=== PATIENT | female | born 2000 | race Caucasian/White ===

== ENCOUNTER 2018-01-08 22:31 | Emergency (ER) | payer BC ==
[~2018-01-08] VITALS: Ht 182.9 cm; Wt 91.0 kg
[2018-01-08 22:46] VITALS: TEMP 36.8; Ht 182.9 cm; Wt 91.0 kg
[2018-01-08 23:50] VITALS: BP 132/67; PULSE 71; O2SAT 100
--- NOTE | 2018-01-09 06:11 | EMERGENCY ROOM VISIT NOTE ---
ED Visit Note First contact with patient: 22:38 CHIEF COMPLAINT: knee pain HISTORY OF PRESENT ILLNESS: This 18-year-old patient presents to the emergency department after sustaining an injury to the left knee when she is walking up the steps and twisted and felt her patella sublux out. Patient was able to straighten out the leg and states she has had this problem before. There was no direct fall or trauma.. The patient denies any other injuries besides their knee. The patient denies swelling or bruising. There is pain throughout the kneecap. They rate the pain as throbbing and 5/10. The patient states they are barely able to walk on it. No numbness or tingling. No previous injuries to this knee. No ankle, foot or hip pain. REVIEW OF SYSTEMS: A 6 system review of systems was completed with positives and pertinent negatives listed in the HPI. ALLERGIES: None MEDICATIONS: None PMH: Orthopedic problem SOCIAL HISTORY: No drug use PHYSICAL EXAM: Vital Signs: Reviewed Nurse's notes, vital signs stable. GENERAL : Pleasant female, no acute distress, but appears in pain, well-developed, well- nourished. MENTAL STATUS: Alert, oriented to person place and time, and cooperative. MUSCULOSKELETAL: The left knee is not swollen. There is no ecchymosis. There is no joint effusion present. The patient is tender diffusely. There is no joint line tenderness. The patella is not subluxate. Range of motion is intact. Strength of the quads and hamstrings is 5/5. Kristan' s is negative. Calvin's and Anterior Drawer tests are negative. There is no laxity with varus and valgus stressing. The foot and toes are warm and well- perfused. Dorsalis pedis pulse 2+. Sensation to pain and light touch is intact. Capillary refill less than 2 seconds. EMERGENCY DEPARTMENT COURSE: I examined the patient. X-rays of the left knee were reviewed by myself and my attending and reveal no fracture. The patient was placed in a knee immobilizer under my direction and the position was satisfactory. The patient was instructed on the use of crutches. Family was advised to follow-up with orthopedics in a few days or here in the ER sooner for severe pain, numbness, tingling, worsening signs or symptoms or as needed. Patient had no fracture. She is well-appearing. She has a history of her patella subluxing. The patient was discharged home in good condition. Differential diagnosis includes sprain, strain, fracture, dislocation and other etiologies were considered. DIAGNOSIS: Left patella subluxed DISCHARGE INSTRUCTIONS: As below Vital Signs Date Time Temp Pulse Resp B/P (MAP) Pulse Ox O2 Delivery O2 Flow Rate FiO2 01/08/18 23:50 71 20 132/67 100 01/08/18 22:46 36.8 71 20 132/67 100 Room Air Departure Information Impression Primary Impression: Subluxation of left patella Dispostion Home / Self-Care Condition GOOD Referrals Miguelito Gambino D.O. Forms HOME CARE DOCUMENTATION FORM, School Instructions, Return To School: 1 day IMPORTANT VISIT INFORMATION Patient Instructions My [facility], ED Dislocation Patella Additional Instructions Ibuprofen(Motrin, Advil) may be used for fever or pain. Use 600mg every six hours as needed. Take with food. Avoid using more than 2400mg in a 24 hour period. Do not use 2400mg per day for more than three consecutive days without physician direction. Prolonged inappropriate use can lead to stomach upset or ulcers. This medication can be taken if you need to drive, work, or perform activities which may be dangerous when taking narcotic pain medication. (AND/OR) Acetaminophen(Tylenol) may be used for fever or pain. Use 1000mg every six hours as needed. Avoid using more than 3000mg in a 24 hour period. This medication can be taken if you need to drive, work, or perform activities which may be dangerous when taking narcotic pain medication. Ice compresses for 20 minutes at a time four times daily for 2-3 days. Use the crutches as instructed. Rest and elevate your injury. Wear knee immobilizer when up and about. Do not have it so tight that you cannot feel your foot. Continue current medications. Return to the ER immediately for any numbness, tingling, severe pain, extreme swelling in the extremity or as needed. Call Orthopedics tomorrow to arrange follow up for your injury. School Instructions Return To School: 1 day
--- NOTE | 2018-01-09 07:35 | DIAGNOSTIC IMAGING REPORT ---
L KNEE 3 VIEWS CLINICAL HISTORY: 18 years-old Female presenting with left knee pain after fall. TECHNIQUE: Frontal, sunrise, and lateral views of the left knee were obtained. COMPARISON: None. FINDINGS: No acute fracture or malalignment. No patellar subluxation. No advanced degenerative change. Trace knee joint effusion may be present. IMPRESSION: No acute osseous injury. Electronically signed by: Nestor Marrero M.D. 01/09/2018 7:34 AM Dictated Date/Time: 01/09/2018 7:24 AM
== END 2018-01-08 23:42 | disposition home or self-care (01) ==
LOC: EDBD 22:31 → C.EDD 22:32
DX: S83.102A Unspecified subluxation of left knee, initial encounter (principal); X50.0XXA Overexertion from strenuous movement or load, initial encounter